=== PATIENT | male | born 2000 | race Caucasian/White ===

== ENCOUNTER 2025-06-09 10:24 | Emergency (ER) | payer OTHER ==
[~2025-06-09] VITALS: Ht 193 cm; Wt 91.3 kg
[2025-06-09] MEDS ORDERED: AUGM250S13 PO (11:02)
[2025-06-09] MEDS ORDERED: AUGM500T34 PO (11:02)
[2025-06-09] MEDS ORDERED: AMOX600S51 PO (11:02)
[2025-06-09 11:54] LABS: BASO # 0.1 10^3/uL (0.0-0.2); BASO % 1.0 % (0.0-1.0); EOS # 0.1 10^3/uL (0.0-0.5); EOS % 1.6 % (0.0-3.0); LYMPH # 2.5 10^3/uL (1.5-5.0); LYMPH % 40.0 % (24.0-44.0); MONO # 0.6 10^3/uL (0.0-0.8); MONO % 9.4 % (2.0-8.0); NEUTROPHILS # 3.0 10^3/uL (1.5-8.5); NEUTROPHILS % 47.7 % (36.0-66.0); PLATELET COUNT, AUTOMATED 386 10^3/uL (150-450)
[2025-06-09 12:23] LABS: CALCIUM LEVEL 9.6 MG/DL (8.5-10.1); CARBON DIOXIDE LEVEL 30 MMOL/L (20-31); CHLORIDE LEVEL 100 MMOL/L (98-107); CREATININE FOR GFR 0.75 MG/DL (0.70-1.30); GLOMERULAR FILTRATION RATE > 90.0 (>60); POTASSIUM SERUM 4.2 MMOL/L (3.5-5.1); SODIUM LEVEL 140 MMOL/L (136-145)
[2025-06-09] MEDS ORDERED: HOME MED LIST COMPLETE! XX SCH (12:30)
[2025-06-09] MEDS ORDERED: ISOVUE-370 76% 100 ML VIAL As Ordered ONE (12:39)
[2025-06-09 13:40] VITALS: BP 118/64; TEMP 97.4; O2SAT 99
== END 2025-06-09 13:42 | disposition home or self-care (01) ==
LOC: M ED 10:24
DX: J35.1 Hypertrophy of tonsils (principal); Z79.2 Long term (current) use of antibiotics
CPT/HCPCS: 36415; 70491; 80048; 85025; 87880; 99284; Q9967